=== PATIENT | female | born 1980 | race Caucasian/White ===

== ENCOUNTER 2016-12-06 18:29 | Emergency (ER) | payer OTHER ==
[~2016-12-06] VITALS: Ht 160 cm; Wt 86.4 kg
[~2016-12-06 18:29] MED LIST: ALLEGRA-D 121 TABLET PO; AMBIEN10 MG PO; AUGMENTIN875 MG PO; BUSPAR30 MG PO; BUSPIRONE HCL15 MG PO; CIPRO500 MG PO; ESCITALOPRAM OX10 MG PO; FLEXERIL10 MG PO; HYDROCODON-ACE1 EAC7 PO; INDOCIN50 MG PO; LORTAB 5-325 M1 EACH PO; MELOXICAM15 MG PO; METHYLPHENIDATE20 M1 PO; METHYLPHENIDATE27 MG PO; MOTRIN600 MG PO; MOTRIN800 MG PO; NAPROSYN500 MG PO; NAPROXEN500 MG PO; NORCO 5/3251 TABLET PO; PERCOCET 5/31 TABLET PO; PREDNISONE20 MG PO; PROAIR HFA8.5 GM IH; RITALIN20 MG PO; ROBITUSSIN AC,T10 ML PO; TESSALON PERLE100 MG PO; TRAMADOL HCL50 MG PO; VALIUM5 MG PO; VENLAFAXINE HC150 M1 PO; VENLAFAXINE225 MG PO; VENTOLIN HFA18 GM IH; VICODIN,LORT1 TABLET PO
[2016-12-06] MEDS ORDERED: ZOFRAN ODT8 MG PO (20:23)
[2016-12-06] MEDS ORDERED: FIORICET,ESG1 TABLET PO (20:23)
[2016-12-06 20:41] VITALS: BP 116/79
== END 2016-12-06 20:46 | disposition home or self-care (01) ==
LOC: EME 18:29
DX: R51 Headache (principal); S00.93XA Contusion of unspecified part of head, initial encounter; W50.0XXA Accidental hit or strike by another person, initial encounter
CPT/HCPCS: 99281; 99284

== ENCOUNTER 2017-07-09 09:19 | Emergency (ER) | payer OTHER ==
[~2017-07-09] VITALS: Ht 160 cm; Wt 82.6 kg
[~2017-07-09 09:19] MED LIST changes: +FIORICET,ESG1 TABLET PO; +ZOFRAN ODT8 MG PO
[2017-07-09] MEDS ORDERED: MOTRIN800 MG PO (11:19)
[2017-07-09] MEDS ORDERED: FLEXERIL10 MG PO (11:19)
[2017-07-09] MEDS ORDERED: ULTRAM50 MG PO (11:19)
[2017-07-09 12:25] VITALS: BP 130/78
[2017-07-10] MEDS ORDERED: LIDODERM 5% P1 PATCH TD (18:32)
[2017-07-10] MEDS ORDERED: ROBAXIN500 MG PO (18:40)
== END 2017-07-09 12:26 | disposition home or self-care (01) ==
LOC: EME 09:19
DX: S49.92XA Unspecified injury of left shoulder and upper arm, initial encounter (principal); M54.2 Cervicalgia; X50.9XXA Other and unspecified overexertion or strenuous movements or postures, initial encounter; Y93.F2 Activity, caregiving, lifting; Y92.199 Unspecified place in other specified residential institution as the place of occurrence of the external cause; Y99.0 Civilian activity done for income or pay
CPT/HCPCS: 73030; 99281; 99284; J3010

== ENCOUNTER 2017-07-10 16:52 | Emergency (ER) | payer OTHER ==
[~2017-07-10] VITALS: Ht 160 cm; Wt 82.1 kg
[~2017-07-10 16:52] MED LIST changes: +ULTRAM50 MG PO
[2017-07-10] MEDS ORDERED: LIDODERM 5% P1 PATCH TD (18:32)
[2017-07-10] MEDS ORDERED: ROBAXIN500 MG PO (18:40)
[2017-07-10 18:43] VITALS: BP 111/81
== END 2017-07-10 18:44 | disposition home or self-care (01) ==
LOC: EME 16:52
DX: S46.912A Strain of unspecified muscle, fascia and tendon at shoulder and upper arm level, left arm, initial encounter (principal); X50.9XXA Other and unspecified overexertion or strenuous movements or postures, initial encounter; Y93.F2 Activity, caregiving, lifting; Y92.199 Unspecified place in other specified residential institution as the place of occurrence of the external cause; Y99.0 Civilian activity done for income or pay
CPT/HCPCS: 99281; 99283

== ENCOUNTER 2017-08-19 14:15 | Emergency (ER) | payer OTHER ==
[~2017-08-19] VITALS: Ht 160 cm; Wt 82.8 kg
[~2017-08-19 14:15] MED LIST changes: +LIDODERM 5% P1 PATCH TD; +ROBAXIN500 MG PO
[2017-08-19 14:55] LABS: POINT-OF-CARE METER ID UU13113778
[2017-08-19 15:25] LABS: EOSINOPHIL (%) 2.1 % (0-5); EOSINOPHIL COUNT 0.2 K/uL (0-0.3); HEMATOCRIT 38.1 % (36.0-46.0); IMMATURE GRANULOCYTE (%) 0.2 % (0.0-0.7); INSTRUMENT ABS NEUTROPHIL CT 4.3 K/uL; LYMPHOCYTE COUNT 3.4 K/uL (1.0-2.8); MCH 29.5 PG (29.0-34.0); MCHC 34.1 G/DL (30.0-36.0); MCV 86.4 FL (83-99); MEAN PLAT.VOLUME 10.3 uM^3 (9.5-12.4); MONOCYTE (%) 6.7 % (3-12); MONOCYTE COUNT 0.6 K/uL (0-0.8); NEUTROPHIL (%) 50.8 % (45-76); NEUTROPHIL COUNT 4.3 K/uL (1.8-6.4); PLATELET COUNT 257 K/uL (156-360); RBC DIS.WIDTH-CV 12.2 % (11.8-14.6); RBC DIS.WIDTH-SD 38.5 % (39-53); RED BLOOD COUNT 4.41 M/uL (3.80-5.20); WHITE BLOOD COUNT 8.4 K/uL (4.1-10.2)
[2017-08-19 15:34] LABS: CHLORIDE 105 mEq/L (99-109); POTASSIUM 3.6 mEq/L (3.7-5.4); SODIUM 135 mEq/L (136-147)
[2017-08-19 15:36] LABS: GLUCOSE 200 mg/dL (70-99)
[2017-08-19 15:37] LABS: ANION GAP 11 MEQ/L (2-14)
[2017-08-19 15:40] LABS: GFR ESTIMATE (CALCULATED) > 59 mL/min/
[2017-08-19 15:41] LABS: UREA NITROGEN (BUN) 14 mg/dL (9-23)
[2017-08-19 15:49] LABS: ADD MIUA? YES; BILIRUBIN NEGATIVE; BLOOD NEGATIVE; COLOR YELLOW ((YELLOW)); GLUCOSE (STRIP) >=500; KETONES 5; LEUKOCYTES MODERATE; NITRITE NEGATIVE; PROTEIN (STRIP) NEGATIVE; SPECIFIC GRAVITY 1.031 (1.000-1.030); UROBILINOGEN 0.2 MG/DL (0.2-1.0)
[2017-08-19 15:54] LABS: BACTERIA RARE /HPF; EPITHELIAL CELLS 1+ /HPF; MUCUS TRACE /LPF
[2017-08-19] MEDS ORDERED: LYRICA100 MG PO (16:42)
[2017-08-19 17:37] LABS: POINT-OF-CARE METER ID UU13113800
[2017-08-19 18:23] VITALS: BP 119/74
== END 2017-08-19 18:10 | disposition home or self-care (01) ==
LOC: EME 14:15
PROVIDERS: Physician Assistant; Physician Assistant Medical
DX: R73.9 Hyperglycemia, unspecified (principal); J45.909 Unspecified asthma, uncomplicated; F90.9 Attention-deficit hyperactivity disorder, unspecified type
CPT/HCPCS: 80048; 81003; 82948; 85025; 99281; 99285; J7030

== ENCOUNTER 2017-11-21 14:33 | Emergency (ER) | payer OTHER ==
[~2017-11-21] VITALS: Ht 160 cm; Wt 83.1 kg
[~2017-11-21 14:33] MED LIST changes: +LYRICA100 MG PO
[2017-11-21] MEDS ORDERED: SKELAXIN800 MG PO (17:33)
[2017-11-21] MEDS ORDERED: ULTRAM50 MG PO (17:33)
[2017-11-21 17:50] VITALS: BP 120/81
== END 2017-11-21 17:45 | disposition home or self-care (01) ==
LOC: EME 14:33
DX: S46.912A Strain of unspecified muscle, fascia and tendon at shoulder and upper arm level, left arm, initial encounter (principal); S29.011A Strain of muscle and tendon of front wall of thorax, initial encounter; S83.92XA Sprain of unspecified site of left knee, initial encounter; E11.9 Type 2 diabetes mellitus without complications; J45.909 Unspecified asthma, uncomplicated; F41.9 Anxiety disorder, unspecified; F90.9 Attention-deficit hyperactivity disorder, unspecified type; F32.9 Major depressive disorder, single episode, unspecified; F31.9 Bipolar disorder, unspecified; R56.9 Unspecified convulsions; V89.2XXA Person injured in unspecified motor-vehicle accident, traffic, initial encounter; Y92.410 Unspecified street and highway as the place of occurrence of the external cause; Z88.2 Allergy status to sulfonamides; Z88.8 Allergy status to other drugs, medicaments and biological substances
CPT/HCPCS: 71020; 73030; 73564; 99281; 99284; J1885

== ENCOUNTER 2018-05-08 23:56 | Emergency (ER) | payer OTHER ==
[~2018-05-08] VITALS: Ht 160 cm; Wt 81.8 kg
[~2018-05-08 23:56] MED LIST changes: +SKELAXIN800 MG PO
[2018-05-09 00:29] LABS: HEMATOCRIT 36.6 % (36.0-46.0); HEMOGLOBIN 12.8 G/DL (11.9-15.5); MCH 29.2 PG (29.0-34.0); MCV 83.6 FL (83-99); PLATELET COUNT 268 K/uL (156-360); RBC DIS.WIDTH-SD 36.6 % (39-53); RED BLOOD COUNT 4.38 M/uL (3.80-5.20); WHITE BLOOD COUNT 8.1 K/uL (4.1-10.2)
[2018-05-09 00:45] LABS: CHLORIDE 107 mEq/L (99-109); POTASSIUM 3.3 mEq/L (3.7-5.4); SODIUM 140 mEq/L (136-147)
[2018-05-09 00:47] LABS: GLUCOSE 141 mg/dL (70-99)
[2018-05-09 00:51] LABS: CREATININE 0.9 mg/dL (0.6-1.3); GFR ESTIMATE (CALCULATED) > 59 mL/min/
[2018-05-09 00:52] LABS: UREA NITROGEN (BUN) 11 mg/dL (9-23)
[2018-05-09 00:58] LABS: TROP-I INTERPRETATION NEGATIVE; TROPONIN-I 0.01 ng/mL (0.0-0.30)
[2018-05-09 00:59] LABS: D-DIMER ELISA < 150.00 ng/mLDDU (<230)
[2018-05-09 01:12] LABS: ALBUMIN 3.8 g/dL (3.2-4.8)
[2018-05-09 01:17] LABS: TOTAL BILIRUBIN 0.6 mg/dL (0.0-1.0)
[2018-05-09 01:18] LABS: ALKALINE PHOSPHATASE 34 IU/L (3-129); SERUM ETHYL ALCOHOL < 10 mg/dL
[2018-05-09 01:20] LABS: AST (GOT) 18 IU/L (2-34)
[2018-05-09 01:21] LABS: ALT (GPT) 29 IU/L (3-49); DIRECT BILIRUBIN 0.3 mg/dL (0.0-0.3)
[2018-05-09 01:22] LABS: LIPASE 45 U/L (1.0-51.0)
[2018-05-09 01:29] LABS: QUANTITATIVE HCG < 4.0 MIU/ML
[2018-05-09] MEDS ORDERED: NORCO 5/3251 TABLET PO (02:51)
[2018-05-09 03:11] LABS: TROP-I INTERPRETATION NEGATIVE; TROPONIN-I < 0.01 ng/mL (0.0-0.30)
[2018-05-09] MEDS ORDERED: FLEXERIL10 MG PO (03:11)
[2018-05-09] MEDS ORDERED: MEDROL DOSEPAK4 MG PO (03:11)
[2018-05-09 03:21] VITALS: BP 111/83
== END 2018-05-09 03:23 | disposition home or self-care (01) ==
LOC: EME 23:56
PROVIDERS: Emergency Medicine
DX: R07.89 Other chest pain (principal); M50.223 Other cervical disc displacement at C6-C7 level; S16.1XXA Strain of muscle, fascia and tendon at neck level, initial encounter; R20.2 Paresthesia of skin; E11.9 Type 2 diabetes mellitus without complications; Z82.49 Family history of ischemic heart disease and other diseases of the circulatory system; F32.9 Major depressive disorder, single episode, unspecified; F41.9 Anxiety disorder, unspecified; F90.9 Attention-deficit hyperactivity disorder, unspecified type; J45.909 Unspecified asthma, uncomplicated; Z88.2 Allergy status to sulfonamides; Z88.6 Allergy status to analgesic agent
CPT/HCPCS: 70450; 71046; 72125; 80048; 80076; 81003; 82948; 83690; 84484; 84702; 85027; 85379; 93005; 99281; 99285; G0480; J2405; J7030; J7512